=== PATIENT | female | born 1990 | race Two or more races ===

== ENCOUNTER 2019-10-08 00:43 | Emergency (ER) | payer SELFPAY ==
[~2019-10-08] VITALS: Ht 162.6 cm; Wt 75.1 kg
[2019-10-08 01:35] LABS: Basophils # (auto) 0 uL; Basophils % (auto) 0.4 % (0.0-2.0); Eosinophils # (auto) 0.3 uL; Eosinophils % (auto) 2.1 % (0.0-7.0); Hematocrit 40.2 % (36.0-46.0); Hemoglobin 13.5 g/dL (12.2-16.2); Lymphocytes # (auto) 2.2 uL; Lymphocytes % (auto) 17.8 % (10.0-50.0); Mean Corpuscular Hemoglobin 28.9 pg (28.0-32.0); Mean Corpuscular Hgb Conc. 33.7 g/dL (32.0-36.0); Mean Corpuscular Volume 85.8 fL (80.0-100.0); Monocytes # (auto) 0.6 uL; Monocytes % (auto) 5.2 % (0.0-12.0); Neutrophils # (auto) 9.2 uL; Neutrophils % (auto) 74.5 % (37.0-80.0); Platelet Count (auto) 246 10^3/uL (140-450); Red Blood Cells 4.69 10^6/uL (4.0-5.20); Red Cell Distribution Width 14.7 % (11.8-14.3); White Blood Cell 12.3 10^3/uL (4.4-10.8)
[2019-10-08 01:37] LABS: Urine Bacteria FEW /hpf (None Seen); Urine Blood 2+ /uL (Negative); Urine Specific Gravity 1.009 (1.001-1.035); Urine WBC 2 /hpf (0 - 5)
[2019-10-08 01:53] LABS: Albumin 3.2 g/dL (3.4-5.0); Calcium 8.7 mg/dL (8.5-10.1); Potassium 3.5 mmol/L (3.5-5.1)
[2019-10-08 01:56] LABS: Bilirubin, Total 0.2 mg/dL (0.2-1.0); Total Protein 7.6 g/dL (6.4-8.2)
[2019-10-08 03:28] VITALS: BP 107/70
== END 2019-10-08 04:24 | disposition home or self-care (01) ==
LOC: ER 00:43
DX: O02.1 Missed abortion (principal)
CPT/HCPCS: 36415; 76801; 80053; 81001; 84702; 85025

== ENCOUNTER 2020-12-29 04:00 | Inpatient (IN) | payer MEDICAID, OTHER ==
[2020-12-29] VITALS (12 sets, daily range): BP systolic 104–127; BP diastolic 54–77
[~2020-12-29] VITALS: Ht 162.6 cm; Wt 82.6 kg
[2020-12-29] MEDS ORDERED: ceFAZolin 1GM/50ML 50 ML IV ONE (04:15)
[2020-12-29] MEDS ORDERED: LACTATED RINGER'S 1,000 ML IV ONE (04:15)
[2020-12-29 05:34] LABS: Basophils # (auto) 0 10 ^3/uL (0-0.2); Basophils % (auto) 0.4 % (0.0-2.0); Eosinophils # (auto) 0.1 10 ^3/uL (0-0.8); Eosinophils % (auto) 1.1 % (0.0-7.0); Hematocrit 36.4 % (36.0-46.0); Hemoglobin 12.5 g/dL (12.2-16.2); Lymphocytes # (auto) 1.7 10 ^3/uL (0.4-5.4); Lymphocytes % (auto) 15.8 % (10.0-50.0); Mean Corpuscular Hemoglobin 29.9 pg (28.0-32.0); Mean Corpuscular Hgb Conc. 34.3 g/dL (32.0-36.0); Mean Corpuscular Volume 87.2 fL (80.0-100.0); Monocytes # (auto) 0.6 10 ^3/uL (0-1.3); Monocytes % (auto) 5.3 % (0.0-12.0); Neutrophils # (auto) 8.6 10 ^3/uL (1.6-8.6); Neutrophils % (auto) 77.4 % (37.0-80.0); Platelet Count (auto) 184 10^3/uL (140-450); Red Blood Cells 4.17 10^6/uL (4.0-5.20); Red Cell Distribution Width 13.2 % (11.8-14.3); White Blood Cell 11.1 10^3/uL (4.4-10.8)
[2020-12-29 05:39] LABS: Urine Bacteria FEW /hpf (None Seen); Urine Blood Negative /uL (Negative); Urine Specific Gravity 1.005 (1.001-1.035); Urine WBC 1 /hpf (0 - 5)
[2020-12-29 05:49] LABS: INR 0.96 (0.9-1.15); Partial Thromboplastin Time 26.3 sec (23.0-31.2)
[2020-12-29 06:04] LABS: Albumin 2.5 g/dL (3.4-5.0); Calcium 8.3 mg/dL (8.5-10.1); Potassium 3.5 mmol/L (3.5-5.1)
[2020-12-29 06:07] LABS: BUN/Creatinine Ratio 15.2; Bilirubin, Total 0.3 mg/dL (0.2-1.0); Total Protein 6.5 g/dL (6.4-8.2)
[2020-12-29] MEDS ORDERED: TETRACAINE 1% INJ 2 ML VIAL IJ ONE (07:00)
[2020-12-29] MEDS ORDERED: EPINEPHrine HCL 1 MG/1 ML AMP ONE (07:01)
[2020-12-29] MEDS ORDERED: MIDAZOLAM HCL 1MG/1ML-2 ML VIAL ONE (07:01)
[2020-12-29] MEDS ORDERED: oxyTOCIN 10 UNIT/ML 10ML VIAL ONE (07:01)
[2020-12-29] MEDS ORDERED: BUPIVACAINE 0.5% P/F INJ 10 ML VIAL ONE (07:01)
[2020-12-29] MEDS ORDERED: SODIUM CHLORIDE LOCK 10 ML ONE (07:01)
[2020-12-29] MEDS ORDERED: ePHEDrine SULFATE 50 MG/ML AMP ONE (07:01)
[2020-12-29] MEDS ORDERED: ONDANSETRON HCL 4 MG/2 ML VIAL ONE (07:01)
[2020-12-29] MEDS ORDERED: MORPHINE SULF(PF) 0.5MG/ML 10ML VIAL ONE (07:01)
[2020-12-29] MEDS ORDERED: fentaNYL CITRATE 100 MCG/2 ML VL ONE (07:01)
[2020-12-29] MEDS ORDERED: MORPHINE SULFATE 4 MG/ML SYR/VIAL IV PRN (08:45)
[2020-12-29] MEDS ORDERED: HYDROmorphone HCL 2 MG/ML VL IV PRN (08:45)
[2020-12-29] MEDS ORDERED: diphenhdrAMINE HCL 50 MG/1 ML VL IV PRN (08:45)
[2020-12-29] MEDS ORDERED: NALOXONE HCL 0.4 MG/ML VIAL IV PRN (08:45)
[2020-12-29] MEDS ORDERED: METOCLOPRAMIDE HCL 5MG/ml INJ 2ml VIAL IV PRN (08:45)
[2020-12-29] MEDS ORDERED: LACT. RINGERS/OXYTOCIN 20UNITS 1,000 ML IV ONE (09:00)
[2020-12-29] MEDS ORDERED: GUM (CHEWING) 1 GUM CHEW CHEW ONE (09:00)
[2020-12-29] MEDS ORDERED: ceFAZolin 1GM/50ML 50 ML IV SCH (09:00)
[2020-12-29] MEDS ORDERED: ONDANSETRON HCL 4 MG/2 ML VIAL IV PRN (09:00)
[2020-12-29] MEDS: ceFAZolin 1GM/50ML 50 ML IV SCH ×2 (15:02→23:25)
[2020-12-29] MEDS ORDERED: RHO (D) IMMUNE GLOBULIN 300 MCG INJ IM ONE (16:30)
[2020-12-29] MEDS: LACTATED RINGER'S 1,000 ML IV SCH (17:09)
[2020-12-29 20:58] LABS: Basophils # (auto) 0.1 10 ^3/uL (0-0.2); Basophils % (auto) 0.6 % (0.0-2.0); Eosinophils # (auto) 0 10 ^3/uL (0-0.8); Eosinophils % (auto) 0.2 % (0.0-7.0); Hematocrit 34.3 % (36.0-46.0); Hemoglobin 11.7 g/dL (12.2-16.2); Lymphocytes # (auto) 1.4 10 ^3/uL (0.4-5.4); Lymphocytes % (auto) 11.6 % (10.0-50.0); Mean Corpuscular Hemoglobin 29.8 pg (28.0-32.0); Mean Corpuscular Volume 87.7 fL (80.0-100.0); Monocytes # (auto) 0.6 10 ^3/uL (0-1.3); Monocytes % (auto) 4.9 % (0.0-12.0); Neutrophils # (auto) 9.7 10 ^3/uL (1.6-8.6); Neutrophils % (auto) 82.7 % (37.0-80.0); Nucleated Red Blood Cells % 0.1 %; Platelet Count (auto) 179 10^3/uL (140-450); Red Blood Cells 3.91 10^6/uL (4.0-5.20); Red Cell Distribution Width 13.4 % (11.8-14.3); White Blood Cell 11.7 10^3/uL (4.4-10.8)
[2020-12-29] MEDS: MORPHINE SULFATE 4 MG/ML SYR/VIAL IV PRN (21:08)
[2020-12-30] VITALS (8 sets, daily range): BP systolic 102–131; BP diastolic 56–78
[2020-12-30] MEDS: LACTATED RINGER'S 1,000 ML IV SCH (01:37)
[2020-12-30] MEDS ORDERED: HYDROcodone-ACET 5/325MG TAB PO PRN (05:45)
[2020-12-30] MEDS: MORPHINE SULFATE 4 MG/ML SYR/VIAL IV PRN (05:47)
[2020-12-30 06:06] LABS: RPR Non Reactive (Non Reactive)
[2020-12-30] MEDS: ceFAZolin 1GM/50ML 50 ML IV SCH (06:56)
[2020-12-30 07:24] LABS: Basophils # (auto) 0.1 10 ^3/uL (0-0.2); Basophils % (auto) 0.6 % (0.0-2.0); Eosinophils # (auto) 0 10 ^3/uL (0-0.8); Eosinophils % (auto) 0.3 % (0.0-7.0); Hematocrit 36.4 % (36.0-46.0); Hemoglobin 12.7 g/dL (12.2-16.2); Lymphocytes # (auto) 1.1 10 ^3/uL (0.4-5.4); Lymphocytes % (auto) 10.3 % (10.0-50.0); Mean Corpuscular Hemoglobin 30.7 pg (28.0-32.0); Mean Corpuscular Hgb Conc. 34.9 g/dL (32.0-36.0); Monocytes # (auto) 0.5 10 ^3/uL (0-1.3); Monocytes % (auto) 4.4 % (0.0-12.0); Neutrophils # (auto) 9.1 10 ^3/uL (1.6-8.6); Neutrophils % (auto) 84.4 % (37.0-80.0); Platelet Count (auto) 181 10^3/uL (140-450); Red Blood Cells 4.14 10^6/uL (4.0-5.20); Red Cell Distribution Width 13.6 % (11.8-14.3); White Blood Cell 10.8 10^3/uL (4.4-10.8)
[2020-12-30] MEDS: DOCUSATE SOD 100 MG CAP PO SCH ×2 (09:28→22:03)
[2020-12-30] MEDS: SIMETHICONE 80 MG CHEWABLE TABLET PO SCH ×4 (09:29→22:03)
[2020-12-30] MEDS: HYDROcodone-ACET 5/325MG TAB PO PRN ×2 (14:21→22:04)
[2020-12-30] MEDS: IBUPROFEN 800 MG TAB PO PRN (17:34)
[2020-12-31 03:00] VITALS: BP 101/67
[2020-12-31] MEDS: IBUPROFEN 800 MG TAB PO PRN (03:02)
[2020-12-31] MEDS: SIMETHICONE 80 MG CHEWABLE TABLET PO SCH ×4 (05:30→21:56)
[2020-12-31 07:22] VITALS: BP 114/73
[2020-12-31] MEDS: DOCUSATE SOD 100 MG CAP PO SCH ×2 (11:28→21:56)
[2020-12-31 11:29] VITALS: BP 117/73
[2020-12-31 15:30] VITALS: BP 117/68
[2020-12-31] MEDS: HYDROcodone-ACET 5/325MG TAB PO PRN ×2 (16:25→23:59)
[2020-12-31 23:00] VITALS: BP 109/69
[2021-01-01 03:00] VITALS: BP 106/78
[2021-01-01] MEDS: IBUPROFEN 800 MG TAB PO PRN (03:06)
[2021-01-01 06:30] VITALS: BP 123/79
[2021-01-01] MEDS ORDERED: PREN-96 PO (09:39)
[2021-01-01] MEDS ORDERED: IBUP100S11 PO (09:41)
[2021-01-01] MEDS ORDERED: IBUP800T27 PO (09:44)
[2021-01-01] MEDS ORDERED: DOCU-94 PO (09:45)
[2021-01-01] MEDS ORDERED: HYDR-4902 PO (09:48)
[2021-01-01] MEDS ORDERED: PRENATAL VITAMIN TAB PO SCH (10:00)
[2021-01-01 11:00] VITALS: BP 119/79
== END 2021-01-01 11:15 | disposition home or self-care (01) | DRG 540 ==
LOC: LDRP 04:00
PROVIDERS: ADMIT Obstetrics & Gynecology; ATTEND Obstetrics & Gynecology
PROC: 3E0234Z Introduction of Serum, Toxoid and Vaccine into Muscle, Percutaneous Approach (ICD-10-PCS; 2020-12-29)
PROC: 10D00Z1 Extraction of Products of Conception, Low, Open Approach (ICD-10-PCS; principal; 2020-12-29 07:34)
DX: O34.211 Maternal care for low transverse scar from previous cesarean delivery (principal); O26.893 Other specified pregnancy related conditions, third trimester; Z20.822 Contact with and (suspected) exposure to COVID-19; Z37.0 Single live birth; Z3A.38 38 weeks gestation of pregnancy; Z67.11 Type A blood, Rh negative
CPT/HCPCS: 36415; 80053; 81001; 85025; 85610; 85730; 86592; 86850; 86900; 86901; 87426; 90384; 94762; 96360; 96361; 96365; 96366; 96374; G0378; J0171; J0690; J2250; J2405; J2590; J3490